=== PATIENT | male | born 1980 | race Caucasian/White ===

== ENCOUNTER 2018-07-21 15:55 | Emergency (ER) | payer MEDICAID ==
[~2018-07-21 15:55] MED LIST: ALPR-624 PO; BAC10T PO; COROTSUS OT; FLUT16SP2 NS; GABA300C PO; IBUP-1051 PO; IBUP-1984 PO; MECL12.5 PO; NORCO10T PO; ONDA4TAB59 PO; ONDA8TAB9 PO; PSEU-225 PO; ZOF4T PO
[2018-07-21 16:42] LABS: BASOPHILS % (AUTO) 0.5 % (0-1); EOSINOPHILS # (AUTO) 0.1 X10'3 (0-0.9); EOSINOPHILS % (AUTO) 0.8 % (0-6); HEMATOCRIT 46.9 % (42.0-52.0); HEMOGLOBIN 15.8 g/dl (14.0-17.9); LYMPHOCYTES # (AUTO) 2.5 X10'3 (1.1-4.8); LYMPHOCYTES % (AUTO) 28.2 % (21-51); MEAN CORPUSCULAR HEMOGLOBIN 32.7 PG (27.0-31.0); MEAN CORPUSCULAR HGB CONC 33.7 % (33.0-36.5); MEAN CORPUSCULAR VOLUME 96.8 FL (78-98); MONOCYTES # (AUTO) 0.6 X10'3 (0-0.9); MONOCYTES % (AUTO) 6.2 % (2-12); NEUTROPHILS # (AUTO) 5.8 X10'3 (1.8-7.7); NEUTROPHILS % (AUTO) 64.3 % (42-75); PLATELET COUNT 328 X10'3 (140-440); RED BLOOD COUNT 4.85 X10'6 (4.70-6.10); RED CELL DISTRIBUTION WIDTH 11.9 % (11.5-14.5)
[2018-07-21 16:56] LABS: ALANINE AMINOTRANSFERASE 19 U/L (12-78); ALBUMIN 4.3 G/DL (3.4-5.0); ALBUMIN/GLOBULIN RATIO 1.5 (1.1-1.5); ALKALINE PHOSPHATASE 64 IU/L (46-116); AMYLASE 76 U/L (25-115); ANION GAP 9 (8-16); ASPARTATE AMINO TRANSFERASE 12 U/L (10-37); BILIRUBIN,TOTAL 0.4 MG/DL (0.1-1.0); BLOOD UREA NITROGEN 10 MG/DL (7-18); BUN/CREATININE RATIO 11.5 (5.4-32.0); CHLORIDE 103 MMOL/L (99-107); CREATININE 0.87 MG/DL (0.60-1.10); GLUCOSE 91 MG/DL (70-104); LIPASE 228 U/L (73-393); POTASSIUM 3.8 MMOL/L (3.5-5.1); SODIUM 142 MMOL/L (135-145); TOTAL CARBON DIOXIDE 29.6 MMOL/L (24-32); TOTAL PROTEIN 7.2 G/DL (6.4-8.2); eGFR > 90 ML/MIN
[2018-07-21 16:57] LABS: PROTHROMBIN TIME 10.5 SECONDS (9.0-12.0)
[2018-07-21 17:10] LABS: CLARITY,URINE CLEAR (Clear); COLOR,URINE STRAW (Yellow); GLUCOSE, URINE NEGATIVE (Neg); KETONES,URINE NEGATIVE (Neg); LEUKOCYTE ESTERASE ,URINE NEGATIVE (Neg); NITRITES, URINE NEGATIVE (Neg); OCCULT BLOOD,URINE NEGATIVE (Neg); PH,URINE 6.5 (4.8-8.0); PROTEIN,URINE NEGATIVE (Neg); UROBILINOGEN,URINE 0.2 E.U/dL (0.2-1.0)
[2018-07-21 17:11] LABS: UA COLLECTION TYPE CLN CATCH MIDSTREAM
[2018-07-21 17:30] VITALS: BP 105/61
== END 2018-07-21 17:32 | disposition home or self-care (01) ==
LOC: ER 15:56
DX: R10.31 Right lower quadrant pain (principal); R10.32 Left lower quadrant pain; E78.00 Pure hypercholesterolemia, unspecified; G89.29 Other chronic pain; F41.9 Anxiety disorder, unspecified; F12.10 Cannabis abuse, uncomplicated; Z88.1 Allergy status to other antibiotic agents; Z88.5 Allergy status to narcotic agent
CPT/HCPCS: 36415; 80053; 81003; 82150; 83690; 85025; 85610; 99283

== ENCOUNTER 2019-05-27 10:58 | Emergency (ER) | payer MEDICAID ==
[~2019-05-27] VITALS: Ht 175.3 cm; Wt 72.7 kg
[2019-05-27 11:13] VITALS: BP 126/80
[2019-05-27] MEDS ORDERED: METH-360 PO (12:23)
[2019-05-27] MEDS ORDERED: IBUP-1985 PO (12:23)
[2019-05-27] MEDS ORDERED: ketorolac tromethamine 15mg/ml inj. IM ONE (12:25)
== END 2019-05-27 12:42 | disposition home or self-care (01) ==
LOC: ER 10:59
DX: M43.6 Torticollis (principal); M54.2 Cervicalgia; E78.00 Pure hypercholesterolemia, unspecified; M19.90 Unspecified osteoarthritis, unspecified site; G89.29 Other chronic pain; F41.9 Anxiety disorder, unspecified; F12.90 Cannabis use, unspecified, uncomplicated; Z90.89 Acquired absence of other organs; Z98.890 Other specified postprocedural states; Z88.5 Allergy status to narcotic agent; Z79.899 Other long term (current) drug therapy; X50.1XXA Overexertion from prolonged static or awkward postures, initial encounter; Y93.89 Activity, other specified; Y92.89 Other specified places as the place of occurrence of the external cause; Y99.8 Other external cause status
CPT/HCPCS: 96372; 99283; J1885

== ENCOUNTER 2020-07-07 02:09 | Emergency (ER) | payer MEDICAID ==
[~2020-07-07] VITALS: Ht 175.3 cm; Wt 70.5 kg
[~2020-07-07 02:09] MED LIST changes: +IBUP-1985 PO; +METH-360 PO
[2020-07-07 02:21] VITALS: BP 115/79
[2020-07-07] MEDS ORDERED: LIDOcaine 1% W/epiNEPHrine 1:200,000 10ml vial IJ ONE (03:10)
[2020-07-07] MEDS ORDERED: SULF1TAB49 PO (03:11)
[2020-07-07] MEDS ORDERED: IBUP-1984 PO (03:11)
== END 2020-07-07 03:56 | disposition home or self-care (01) ==
LOC: ER 02:10
DX: L02.11 Cutaneous abscess of neck (principal); E78.00 Pure hypercholesterolemia, unspecified; G89.29 Other chronic pain; F41.9 Anxiety disorder, unspecified; F12.10 Cannabis abuse, uncomplicated; Z79.899 Other long term (current) drug therapy; Z98.890 Other specified postprocedural states; Z88.5 Allergy status to narcotic agent; Z88.1 Allergy status to other antibiotic agents
CPT/HCPCS: 10060; 99283

== ENCOUNTER 2021-01-10 14:05 | Emergency (ER) | payer MEDICAID ==
[~2021-01-10] VITALS: Ht 177.8 cm; Wt 72.7 kg
[2021-01-10 14:19] VITALS: BP 120/70
[2021-01-10] MEDS ORDERED: ketorolac tromethamine 15mg/ml inj. IM ONE (15:30)
== END 2021-01-10 15:49 | disposition home or self-care (01) ==
LOC: ER 14:06
DX: S92.351A Displaced fracture of fifth metatarsal bone, right foot, initial encounter for closed fracture (principal); M79.671 Pain in right foot; E78.00 Pure hypercholesterolemia, unspecified; M19.90 Unspecified osteoarthritis, unspecified site; G89.29 Other chronic pain; F41.9 Anxiety disorder, unspecified; F12.90 Cannabis use, unspecified, uncomplicated; Z90.89 Acquired absence of other organs; Z98.890 Other specified postprocedural states; Z88.5 Allergy status to narcotic agent; Z88.1 Allergy status to other antibiotic agents; Z79.899 Other long term (current) drug therapy; V19.9XXA Pedal cyclist (driver) (passenger) injured in unspecified traffic accident, initial encounter; Y93.89 Activity, other specified; Y92.89 Other specified places as the place of occurrence of the external cause; Y99.8 Other external cause status
CPT/HCPCS: 29515; 73630; 99283

== ENCOUNTER 2023-07-09 14:52 | Emergency (ER) | payer MEDICAID ==
[~2023-07-09] VITALS: Ht 172.7 cm; Wt 70.5 kg
[2023-07-09 15:02] VITALS: TEMP 98.8
[2023-07-09] MEDS ORDERED: ketorolac trometh. 30mg/ml inj. IM ONE (15:15)
[2023-07-09] MEDS ORDERED: HYDR-3965 PO (16:03)
[2023-07-09] MEDS ORDERED: IBUP-1984 PO (16:03)
[2023-07-09 16:11] VITALS: BP 134/90; PULSE 86; RESP 18; O2SAT 97
== END 2023-07-09 16:16 | disposition home or self-care (01) ==
LOC: ER 14:53
DX: H92.02 Otalgia, left ear (principal); R51.9 Headache, unspecified; R42 Dizziness and giddiness; E78.00 Pure hypercholesterolemia, unspecified; M19.90 Unspecified osteoarthritis, unspecified site; G89.29 Other chronic pain; M06.9 Rheumatoid arthritis, unspecified; F12.90 Cannabis use, unspecified, uncomplicated; Z90.89 Acquired absence of other organs; Z96.21 Cochlear implant status; Z88.8 Allergy status to other drugs, medicaments and biological substances; Z79.899 Other long term (current) drug therapy; Z88.1 Allergy status to other antibiotic agents
CPT/HCPCS: 96372; 99283; J1885

== ENCOUNTER 2023-08-24 13:29 | Emergency (ER) | payer MEDICAID ==
[~2023-08-24] VITALS: Ht 172.7 cm; Wt 70.5 kg
[2023-08-24 14:09] VITALS: TEMP 99
[2023-08-24] MEDS ORDERED: dexamethasone sod phosphate 10mg/ml inj IM STA (14:20)
[2023-08-24] MEDS ORDERED: HYDROmorphone 1 mg/ml syringe IM ONE (16:50)
[2023-08-24] MEDS ORDERED: HYDR-3973 PO (16:53)
[2023-08-24] MEDS ORDERED: PRED20TA PO (16:53)
[2023-08-24] MEDS ORDERED: BACL20TA11 PO (16:55)
[2023-08-24 17:32] VITALS: BP 108/74; PULSE 71; RESP 18; O2SAT 96
== END 2023-08-24 17:36 | disposition home or self-care (01) ==
LOC: ER 13:30
DX: M54.50 Low back pain, unspecified (principal); E78.00 Pure hypercholesterolemia, unspecified; M19.90 Unspecified osteoarthritis, unspecified site; Z88.5 Allergy status to narcotic agent; Z91.041 Radiographic dye allergy status; Z79.1 Long term (current) use of non-steroidal anti-inflammatories (NSAID); Z79.899 Other long term (current) drug therapy; Z79.2 Long term (current) use of antibiotics
CPT/HCPCS: 72131; 96372; 99285; J1100; J1170

== ENCOUNTER 2024-03-04 22:04 | Emergency (ER) | payer MEDICAID ==
[~2024-03-04] VITALS: Ht 175.3 cm; Wt 72.7 kg
[~2024-03-04 22:04] MED LIST changes: +BACL20TA11 PO
[2024-03-04 22:08] VITALS: BP 116/83; PULSE 70; RESP 18; O2SAT 98
[2024-03-04] MEDS ORDERED: IBUP-862 PO (22:46)
[2024-03-04 23:07] VITALS: TEMP 98.1
== END 2024-03-04 23:09 | disposition home or self-care (01) ==
LOC: ER 22:05
DX: S62.666A Nondisplaced fracture of distal phalanx of right little finger, initial encounter for closed fracture (principal); E78.00 Pure hypercholesterolemia, unspecified; G89.29 Other chronic pain; M06.9 Rheumatoid arthritis, unspecified; F12.90 Cannabis use, unspecified, uncomplicated; Z96.21 Cochlear implant status; Z90.13 Acquired absence of bilateral breasts and nipples; Z98.890 Other specified postprocedural states; Z88.1 Allergy status to other antibiotic agents; Z88.8 Allergy status to other drugs, medicaments and biological substances; Z79.899 Other long term (current) drug therapy; Z79.2 Long term (current) use of antibiotics; W19.XXXA Unspecified fall, initial encounter; Y93.01 Activity, walking, marching and hiking; Y92.89 Other specified places as the place of occurrence of the external cause; Y99.8 Other external cause status
CPT/HCPCS: 29130; 73140; 99283

== ENCOUNTER 2024-07-22 11:33 | Emergency (ER) | payer MEDICAID, OTHER ==
[~2024-07-22] VITALS: Ht 172.7 cm; Wt 67.8 kg
[~2024-07-22 11:33] MED LIST changes: +IBUP-862 PO
[2024-07-22] MEDS ORDERED: NAPR-56 PO (11:58)
[2024-07-22] MEDS ORDERED: TIZA-189 PO (11:58)
[2024-07-22] MEDS: orphenadrine citrate 60mg/2ml inj. IM ONE (12:02)
[2024-07-22] MEDS: ketorolac trometh 30MG/ML vial 30 MG/ML VIAL IM ONE (12:12)
[2024-07-22 12:14] VITALS: BP 133/87; PULSE 68; RESP 16; TEMP 98.1; O2SAT 97
== END 2024-07-22 12:15 | disposition home or self-care (01) ==
LOC: ER 11:33
DX: S19.80XA Other specified injuries of unspecified part of neck, initial encounter (principal); S09.8XXA Other specified injuries of head, initial encounter; M54.2 Cervicalgia; E78.00 Pure hypercholesterolemia, unspecified; G89.29 Other chronic pain; M54.89 Other dorsalgia; M19.90 Unspecified osteoarthritis, unspecified site; F41.9 Anxiety disorder, unspecified; F12.90 Cannabis use, unspecified, uncomplicated; Z88.5 Allergy status to narcotic agent; Z88.1 Allergy status to other antibiotic agents; Z90.89 Acquired absence of other organs; X58.XXXA Exposure to other specified factors, initial encounter; V89.2XXA Person injured in unspecified motor-vehicle accident, traffic, initial encounter; Y92.89 Other specified places as the place of occurrence of the external cause; Y99.8 Other external cause status
CPT/HCPCS: 96372; 99283; J1885

== ENCOUNTER 2024-11-01 23:27 | Emergency (ER) | payer MEDICAID, OTHER ==
[~2024-11-01] VITALS: Ht 172.7 cm; Wt 53.7 kg
[~2024-11-01 23:27] MED LIST changes: +TIZA-189 PO
[2024-11-02] MEDS: normal saline 1000ml 1,000 ML IV ONE (00:02)
[2024-11-02 00:17] LABS: BASOPHILS # (AUTO) 0.1 X10'3 (0-0.2); BASOPHILS % (AUTO) 0.6 % (0-1); EOSINOPHILS # (AUTO) 0.1 X10'3 (0-0.9); EOSINOPHILS % (AUTO) 0.7 % (0-6); HEMATOCRIT 46.3 % (42.0-52.0); HEMOGLOBIN 16.1 g/dl (14.0-17.9); LYMPHOCYTES # (AUTO) 3.1 X10'3 (1.1-4.8); LYMPHOCYTES % (AUTO) 21.3 % (21-51); MEAN CORPUSCULAR HEMOGLOBIN 33.1 PG (27.0-31.0); MEAN CORPUSCULAR HGB CONC 34.8 g/dL (33.0-36.5); MEAN CORPUSCULAR VOLUME 95.2 FL (78-98); MEAN PLATELET VOLUME 7.6 FL (7.4-10.4); MONOCYTES # (AUTO) 1.1 X10'3 (0-0.9); MONOCYTES % (AUTO) 7.4 % (2-12); NEUTROPHILS # (AUTO) 10.2 X10'3 (1.8-7.7); PLATELET COUNT 340 X10'3 (140-440); RED BLOOD COUNT 4.86 X10'6 (4.70-6.10); RED CELL DISTRIBUTION WIDTH 12.7 % (11.5-14.5); WHITE BLOOD COUNT 14.6 X10'3 (4.5-11.0)
[2024-11-02 00:19] LABS: ALANINE AMINOTRANSFERASE 53 U/L (12-78); ALBUMIN 4.4 G/DL (3.4-5.0); ALBUMIN/GLOBULIN RATIO 1.6 (1.1-1.5); ALKALINE PHOSPHATASE 76 IU/L (46-116); ANION GAP 11 (8-16); ASPARTATE AMINO TRANSFERASE 17 U/L (10-37); BILIRUBIN,TOTAL 0.6 MG/DL (0.1-1.0); BLOOD UREA NITROGEN 14 MG/DL (7-18); BUN/CREATININE RATIO 16.7 (10.0-20.0); CHLORIDE 102 MMOL/L (99-107); CREATININE 0.84 MG/DL (0.60-1.10); GLUCOSE 97 MG/DL (70-104); POTASSIUM 3.5 MMOL/L (3.5-5.1); SODIUM 139 MMOL/L (135-145); TOTAL CARBON DIOXIDE 26.3 MMOL/L (24-32); TOTAL PROTEIN 7.2 G/DL (6.4-8.2); eCRCL 84 ML/MIN; eGFR > 90 ML/MIN
[2024-11-02 00:33] LABS: URINE AMPHETAMINE SCREEN NEGATIVE (Neg); URINE BARBITUATE SCREEN NEGATIVE (Neg); URINE BENZODIAZEPINES SCREEN NEGATIVE (Neg); URINE CANNABINOID SCREEN POSITIVE (Neg); URINE COCAINE SCREEN NEGATIVE (Neg); URINE METHADONE SCREEN NEGATIVE (Neg); URINE OPIATE SCREEN NEGATIVE (Neg); URINE PHENCYCLIDINE SCREEN NEGATIVE (Neg)
[2024-11-02 01:28] VITALS: BP 125/87; PULSE 87; RESP 18; TEMP 98.6; O2SAT 99
== END 2024-11-02 01:29 | disposition home or self-care (01) ==
LOC: ER 23:28
DX: R19.7 Diarrhea, unspecified (principal); E78.00 Pure hypercholesterolemia, unspecified; F41.9 Anxiety disorder, unspecified; M06.9 Rheumatoid arthritis, unspecified; Z88.1 Allergy status to other antibiotic agents; Z88.5 Allergy status to narcotic agent; Z88.8 Allergy status to other drugs, medicaments and biological substances; Z90.89 Acquired absence of other organs
CPT/HCPCS: 36415; 80053; 80305; 85025; 96360; 99283; J7030

== ENCOUNTER 2024-11-08 05:52 | Emergency (ER) | payer MEDICAID ==
[~2024-11-08] VITALS: Ht 172.7 cm; Wt 67.0 kg
[2024-11-08 06:14] VITALS: BP 125/89; PULSE 82; TEMP 98.1; O2SAT 99
[2024-11-08] MEDS ORDERED: DICL50TA8 PO (07:41)
[2024-11-08] MEDS: oxyCODONE IR 5mg (immed. release) tablet PO ONE (07:54)
[2024-11-08 07:55] VITALS: RESP 16
[2024-11-08] MEDS: ketorolac trometh 15mg/ml vial 15 MG/ML ML IV ONE (07:55)
== END 2024-11-08 08:17 | disposition home or self-care (01) ==
LOC: ER 05:53
DX: S63.592A Other specified sprain of left wrist, initial encounter (principal); E78.00 Pure hypercholesterolemia, unspecified; G89.29 Other chronic pain; M54.9 Dorsalgia, unspecified; F41.9 Anxiety disorder, unspecified; F12.90 Cannabis use, unspecified, uncomplicated; Z88.1 Allergy status to other antibiotic agents; Z88.5 Allergy status to narcotic agent; Z90.89 Acquired absence of other organs; Z79.1 Long term (current) use of non-steroidal anti-inflammatories (NSAID); Z79.899 Other long term (current) drug therapy; W18.39XA Other fall on same level, initial encounter; Y93.89 Activity, other specified; Y92.89 Other specified places as the place of occurrence of the external cause; Y99.8 Other external cause status
CPT/HCPCS: 29125; 73110; 96374; 99283; J1885

== ENCOUNTER 2024-12-20 17:04 | Emergency (ER) | payer MEDICAID ==
[~2024-12-20] VITALS: Ht 170.2 cm; Wt 60.1 kg
[~2024-12-20 17:04] MED LIST changes: +DICL50TA8 PO
[2024-12-20 17:12] VITALS: BP 134/77; PULSE 86; RESP 16; TEMP 97.9; O2SAT 97
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
[2024-12-20] MEDS ORDERED: IBUP-1984 PO (18:20)
--- NOTE | 2024-12-20 18:40 | RADIOLOGY REPORT ---
CLINICAL INDICATION: KNEE PAIN TECHNIQUE: 4 views of the left knee DI KNEE, COMP 4 VW MIN Comparison: None FINDINGS/IMPRESSION: There is no evidence of acute fracture or dislocation. Mild joint space narrowing at the medial compartment. Soft tissues are unremarkable. No joint effusion.
== END 2024-12-20 18:25 | disposition home or self-care (01) ==
LOC: ER 17:05
DX: M25.562 Pain in left knee (principal); E78.00 Pure hypercholesterolemia, unspecified; M06.9 Rheumatoid arthritis, unspecified; F12.90 Cannabis use, unspecified, uncomplicated; Z88.1 Allergy status to other antibiotic agents; Z88.5 Allergy status to narcotic agent; Z88.8 Allergy status to other drugs, medicaments and biological substances; Z90.89 Acquired absence of other organs; V89.2XXA Person injured in unspecified motor-vehicle accident, traffic, initial encounter; Y93.89 Activity, other specified; Y92.89 Other specified places as the place of occurrence of the external cause; Y99.8 Other external cause status
CPT/HCPCS: 29505; 73564; 99283